=== PATIENT | male | born 1930 | race Hispanic/Latino ===

== ENCOUNTER → 2020-02-20 | Outpatient (CLI) | payer OTHER | END | disposition home or self-care (01) | LOC: RAH 08:06 | PROVIDERS: ATTEND Internal Medicine | DX: K21.9 Gastro-esophageal reflux disease without esophagitis (principal); R05 Cough | CPT/HCPCS: 74220 ==

== ENCOUNTER → 2020-03-13 | Outpatient (CLI) | payer OTHER ==
--- NOTE | 2020-03-13 11:00 | NUR ---
MBSS COMPLETED. DEEP TRANSIENT PENETRATION WITH THIN LIQUIDS VIA LARGE CUP SIP. RECOMMEND REGULAR TEXTURE, THIN LIQUIDS; PILLS WHOLE WITH LIQUIDS WITH COMPENSATORY STRATEGIES IN PLACE. RECOMMENDATIONS: 1. SKILLED SPEECH THERAPY 2XWEEK FOR 8 WEEKS EMT DISPATCHER PROVIDED RESULTS AND RECOMMENDATIONS VIA VERBAL AND WRITTEN MODALITY IN Pt'S [place] LANGUAGE OF [place]IS[place]. ALL QUESTIONS AND CONCERNS ADDRESSED AT THIS TIME. Addendum: 03/13/20 at 1643 by JOSE DE JESUS BOUDREAUX, [facility] Amended: Links added.
== END | disposition home or self-care (01) ==
LOC: RAH 10:28
PROVIDERS: ATTEND Internal Medicine
DX: R63.3 Feeding difficulties (principal); R13.10 Dysphagia, unspecified
CPT/HCPCS: 74230; 92611